=== PATIENT | female | born 2000 | race Caucasian/White ===

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

== ENCOUNTER 2022-01-05 21:10 | Inpatient (IN) | payer OTHER, SELFPAY ==
[~2022-01-05] VITALS: Ht 154.9 cm; Wt 75.3 kg
[~2022-01-05 21:10] MED LIST changes: -CIPR500T4 PO; +FERR-212 PO; -NITR100C7 PO; +PNV91TAB8 PO
[2022-01-05] MEDS ORDERED: METHYLERGONOVINE 0.2 MG/ML AMP IM PRN (21:50)
[2022-01-05] MEDS ORDERED: LACTATED RINGERS 500 ML IV ONE (21:50)
[2022-01-05] MEDS ORDERED: CARBOPROST 250 MCG/ML AMP IM PRN (21:50)
[2022-01-05] MEDS ORDERED: NALBUPHINE 10 MG/ML AMP IVP PRN (21:50)
[2022-01-05] MEDS ORDERED: PROMETHAZINE 25 MG/ML VIAL IVP PRN (21:50)
[2022-01-05] MEDS ORDERED: OXYTOCIN 10 UNITS/ML VIAL IM SCH (21:50)
[2022-01-05 22:23] LABS: APPEARANCE,URINE CLEAR (CLEAR); BILIRUBIN,URINE NEGATIVE (NEGATIVE); BLOOD, URINE NEGATIVE (NEGATIVE); COLOR,URINE YELLOW (YELLOW); LEUKOCYTE ESTERASE ,URINE NEGATIVE (NEGATIVE); NITRITE, URINE NEGATIVE (NEGATIVE); UGLUCOSE NEGATIVE (NEGATIVE)
[2022-01-05] MEDS: LACTATED RINGERS 1,000 ML IV SCH (22:31)
[2022-01-05 22:32] VITALS: BP 126/87
[2022-01-05 22:37] LABS: BASOPHILS # (AUTO) 0.1 K/uL (0.00-0.22); BASOPHILS % (AUTO) 0.7 % (0.0-2.0); EOSINOPHILS # (AUTO) 0.1 K/uL (0-0.4); EOSINOPHILS % (AUTO) 0.6 % (0.0-4.0); HEMATOCRIT 36.1 % (36-48); HEMOGLOBIN 12.3 g/dL (12.0-16.0); LYMPHOCYTES # (AUTO) 1.5 K/uL (2.5-16.5); LYMPHOCYTES % (AUTO) 16.1 % (20.5-51.1); MEAN CORPUSCULAR HEMOGLOBIN 30 pg (27-31); MEAN CORPUSCULAR HGB CONC 34 g/dL (33-37); MEAN CORPUSCULAR VOLUME 87.2 fL (80-94); MONOCYTES # (AUTO) 0.7 K/uL (0.8-1.0); NEUTROPHILS # (AUTO) 7.2 K/uL (1.8-7.7); NEUTROPHILS % (AUTO) 75.6 % (42.2-75.2); PLATELET COUNT (AUTO) 163 K/uL (140-450); RED BLOOD CELL COUNT(AUTO) 4.14 MIL/uL (4.20-5.40); WHITE BLOOD COUNT (AUTO) 9.5 K/uL (4.5-11.0)
[2022-01-05 22:49] LABS: ALBUMIN 2.5 g/dL (3.4-5.0); ANION GAP 10.6 (8-16); CARBON DIOXIDE 24.4 mmol/L (21-32); CREATININE 0.7 mg/dL (0.6-1.3); TOTAL BILIRUBIN 0.2 mg/dL (0.0-1.0)
[2022-01-05 22:51] LABS: RBC,URINE 0-5 /HPF (0-5); WBC,URINE 0-5 /HPF (0-5)
[2022-01-05] MEDS ORDERED: CLINDAMYCIN 900 MG/6 ML VIAL IV ONE (23:04)
[2022-01-05] MEDS: CLINDAMYCIN 900 MG in DEXTROSE 5% 100 ML IV SCH (23:11)
[2022-01-06] MEDS ORDERED: ROPIVACAINE 0.2%/NS PREMIX 200 ML EPI ONE (04:48)
[2022-01-06] MEDS: LACTATED RINGERS 1,000 ML IV SCH ×2 (05:27→10:14)
[2022-01-06] MEDS ORDERED: ONDANSETRON 4 MG/2 ML VIAL ONE (06:05)
[2022-01-06] MEDS ORDERED: ONDANSETRON 4 MG/2 ML VIAL IVP PRN (06:10)
[2022-01-06] MEDS ORDERED: CLINDAMYCIN 900 MG/6 ML VIAL IV ONE (06:51)
[2022-01-06] MEDS: CLINDAMYCIN 900 MG in DEXTROSE 5% 100 ML IV SCH (06:53)
[2022-01-06] MEDS ORDERED: OXYTOCIN 20 UNITS/LR PREMIX 1,000 ML IV ONE (08:18)
[2022-01-06] MEDS ORDERED: OXYTOCIN 20 UNITS in LACTATED RINGERS 1,000 ML IV SCH ×2 (08:40→15:40)
[2022-01-06] MEDS ORDERED: OXYTOCIN 10 UNITS/ML VIAL IM SCH (10:40)
[2022-01-06] MEDS ORDERED: OXYTOCIN 10 UNITS/ML VIAL ONE (10:43)
--- NOTE | 2022-01-06 15:01 | NUR ---
Rn called regarding - requested RT present of delivery due to meconium staining fluid. patient audibly cried shortly after delivery - MD cleared out airway - RN cleared RT from delivery room.
[2022-01-06] MEDS ORDERED: DOCUSATE SODIUM 100 MG GELCAP PO PRN (15:40)
[2022-01-06] MEDS ORDERED: ACETAMINOPHEN 325 MG TAB PO PRN (15:40)
[2022-01-06] MEDS ORDERED: bisacodyL 5 MG TABEC PO PRN (15:40)
[2022-01-06] MEDS ORDERED: MEASLES, MUMPS, AND RUBELLA 1 VIAL SQVAC ONE (15:40)
[2022-01-06] MEDS: IBUPROFEN 600 MG TAB PO PRN (16:26)
[2022-01-07] MEDS: IBUPROFEN 600 MG TAB PO PRN (08:18)
[2022-01-07 08:56] LABS: BASOPHILS # (AUTO) 0.2 K/uL (0.00-0.22); BASOPHILS % (AUTO) 1.5 % (0.0-2.0); EOSINOPHILS # (AUTO) 0.1 K/uL (0-0.4); EOSINOPHILS % (AUTO) 0.5 % (0.0-4.0); HEMATOCRIT 35.8 % (36-48); LYMPHOCYTES # (AUTO) 1.8 K/uL (2.5-16.5); LYMPHOCYTES % (AUTO) 15.5 % (20.5-51.1); MEAN CORPUSCULAR HEMOGLOBIN 30 pg (27-31); MEAN CORPUSCULAR HGB CONC 34 g/dL (33-37); MEAN CORPUSCULAR VOLUME 88.1 fL (80-94); MONOCYTES # (AUTO) 0.7 K/uL (0.8-1.0); MONOCYTES % (AUTO) 5.9 % (1.7-9.3); NEUTROPHILS # (AUTO) 9.1 K/uL (1.8-7.7); NEUTROPHILS % (AUTO) 76.6 % (42.2-75.2); PLATELET COUNT (AUTO) 142 K/uL (140-450); RED BLOOD CELL COUNT(AUTO) 4.06 MIL/uL (4.20-5.40); RED CELL DISTRIBUTION WIDTH 13.9 % (11.6-13.7); WHITE BLOOD COUNT (AUTO) 11.9 K/uL (4.5-11.0)
--- NOTE | 2022-01-07 09:28 | NUR ---
PATIENT HAS BEEN SCREENED AND CATEGORIZED LOW NUTRITION RISK. PATIENT WILL BE SEEN WITHIN 7 DAYS OF ADMISSION. 01/12/[address]
[2022-01-07] MEDS: APAP/BUTAL/CAFF 325/50/40 MG 1 TAB PO SCH (21:30)
[2022-01-08] MEDS: APAP/BUTAL/CAFF 325/50/40 MG 1 TAB PO SCH ×3 (01:54→09:46)
== END 2022-01-08 20:07 | disposition home or self-care (01) | DRG 560 ==
LOC: MFCC 21:10 → OBSVTOIN 21:10 → UNDOADMOB 21:10 → INTOOBSV 21:10 → MFCC 01-06 04:09 → OBSVTOIN 01-06 04:09 → MFCC 01-06 17:45
PROVIDERS: ADMIT Obstetrics & Gynecology; ATTEND Obstetrics & Gynecology
PROC: 10E0XZZ Delivery of Products of Conception, External Approach (ICD-10-PCS; principal; 2022-01-07)
PROC: 3E0R3BZ Introduction of Anesthetic Agent into Spinal Canal, Percutaneous Approach (ICD-10-PCS; 2022-01-07)
PROC: 00HU33Z Insertion of Infusion Device into Spinal Canal, Percutaneous Approach (ICD-10-PCS; 2022-01-07)
DX: O77.0 Labor and delivery complicated by meconium in amniotic fluid (principal); Z37.0 Single live birth; Z20.822 Contact with and (suspected) exposure to COVID-19; Z3A.38 38 weeks gestation of pregnancy
CPT/HCPCS: 36415; 51702; 59070; 59409; 76805; 80053; 81001; 85025; 86592; 86886; 86900; 86901; J2405; J2590; J2795; J3490; J7060; Q0092

== ENCOUNTER 2022-01-10 22:44 | Emergency (ER) | payer OTHER, SELFPAY ==
[~2022-01-10] VITALS: Ht 162.6 cm; Wt 59.9 kg
[2022-01-10 22:48] VITALS: BP 124/68
--- NOTE | 2022-01-10 22:55 | NUR ---
TO LOBBY FOLLOWING TRIAGE
--- NOTE | 2022-01-11 01:00 | NUR ---
PT TAKEN TO ER BED 09
--- NOTE | 2022-01-11 01:04 | NUR ---
AMBULATED TO BR FOR UA
--- NOTE | 2022-01-11 01:07 | NUR ---
COVERING PRIMARY RN FOR LUNCH RELIEF. SEE COMPLETE ASSESSMENT.
--- NOTE | 2022-01-11 01:09 | NUR ---
DR. MARSHALL AT BEDSIDE FOR EVALUATTION.
--- NOTE | 2022-01-11 01:42 | NUR ---
PT ASKED FOR A BOX OF FORMULA FOR HER BABY WHILE SHE IS HERE IN ER BECAUSE SHE NORMALLY BREASTFEEDS. PT STATES SOMEONE TOLD HER WE WOULD GIVE HER SOME. WENT DOWN TO NURSERY, NURSES THERE STATED THEY ARE UNABLE TO PULL FORMULA FOR THE PT BECAUSE IT NEEDS TO CHARGED TO SOMEONE. I GAVE PT 2 OF THE FORMULAS WE HAVE HERE FOR NOW.
[2022-01-11] MEDS ORDERED: NACL 0.9% 1,000 ML IV ONE (03:30)
[2022-01-11] MEDS ORDERED: diphenhydrAMINE 50 MG/ML VIAL IVP ONE (03:30)
[2022-01-11] MEDS ORDERED: KETOROLAC 15 MG/ML VIAL IVP ONE (03:30)
[2022-01-11] MEDS ORDERED: PROCHLORPERAZINE 10 MG/2 ML VIAL IVP ONE (03:30)
[2022-01-11 05:30] VITALS: BP 125/74
--- NOTE | 2022-01-11 05:30 | NUR ---
Patient discharged with v/s stable. Written and verbal after care instructions given and explained. Patient verbalized understanding. Ambulatory with steady gait. All questions addressed prior to discharge. Advised to follow up with PMD.
== END 2022-01-11 05:30 | disposition home or self-care (01) ==
LOC: MED 22:44
DX: O90.89 Other complications of the puerperium, not elsewhere classified (principal); R42 Dizziness and giddiness; R11.10 Vomiting, unspecified
CPT/HCPCS: 70450; 81025; 96361; 96374; 96375; 99284; J0780; J1200; J1885; J7030

== ENCOUNTER 2023-05-07 17:34 | Emergency (ER) | payer OTHER ==
[~2023-05-07] VITALS: Ht 162.6 cm; Wt 81.6 kg
[2023-05-07 18:17] VITALS: BP 142/83; PULSE 95; RESP 20; TEMP 97.6; O2SAT 98
[2023-05-07] MEDS ORDERED: PROCHLORPERAZINE 10 MG/2 ML VIAL ONE (20:43)
[2023-05-07] MEDS ORDERED: diphenhydrAMINE 50 MG/ML VIAL ONE (20:43)
[2023-05-07] MEDS: PROCHLORPERAZINE 10 MG/2 ML VIAL IVP ONE (20:44)
[2023-05-07] MEDS: diphenhydrAMINE 50 MG/ML VIAL IVP ONE (20:47)
[2023-05-07] MEDS: NACL 0.9% 1,000 ML IV SCH (20:49)
[2023-05-07] MEDS ORDERED: ACET-10509 PO (21:01)
[2023-05-07] MEDS ORDERED: ATA25 PO (21:01)
[2023-05-07 21:06] VITALS: BP 142/83; PULSE 95; RESP 20; TEMP 97.6; O2SAT 98
== END 2023-05-07 21:06 | disposition home or self-care (01) ==
LOC: MED 17:34
DX: R51.9 Headache, unspecified (principal); F41.9 Anxiety disorder, unspecified; R42 Dizziness and giddiness; Z88.0 Allergy status to penicillin; Z79.899 Other long term (current) drug therapy
CPT/HCPCS: 96361; 96374; 96375; 99284; J0780; J1200; J7030